=== PATIENT | male | born 1995 | race African-American/Black ===

== ENCOUNTER 2021-07-19 15:48 | Emergency (ER) | payer MEDICAID ==
[~2021-07-19] VITALS: Ht 177.8 cm; Wt 103.9 kg
[2021-07-19 16:13] VITALS: BP 144/91
--- NOTE | 2021-07-19 16:16 | NUR ---
TO ER BED 12, C/O ABSCESS RE-CHECK, S/P I & 2 DAYS AGO AT AN URGENT CARE, AAOX3, BREATHING EVEN AND NON LABORED, CONNECTED TO MONITOR
[2021-07-19] MEDS ORDERED: CLINDAMYCIN 900 MG in IV D5W 100 ML IV ONE (17:00)
[2021-07-19] MEDS ORDERED: CLIN300C12 PO (17:45)
--- NOTE | 2021-07-19 18:02 | NUR ---
IV removed. Catheter intact and site benign. Pressure and 4x4 applied to site. No bleeding noted.Patient discharged to home in stable condition. Written and verbal after care instructions given. Patient verbalizes understanding of instruction.
== END 2021-07-19 18:06 | disposition home or self-care (01) ==
LOC: ER 15:54
DX: L03.111 Cellulitis of right axilla (principal)
CPT/HCPCS: 96374; 99284; J3490; J7060